=== PATIENT | female | born 1960 | race Caucasian/White ===

== ENCOUNTER → 2016-05-02 | Outpatient (CLI) | payer MEDICARE, MEDICAID ==
[~2016-05-02] MED LIST: ALLEGRA-D 24 H1 EACH PO; ALTACE2.5 MG PO; DOLOPHINE10 MG PO; JANUMET XR 50-1 EACH PO; KLOR-CON 1010 MEQ PO; LAMICTAL25 MG PO; LEXAPRO20 MG PO; LIPITOR20 M1 PO; NEURONTIN300 MG PO; SINGULAIR10 MG PO; VITAMIN B-1000 MCG/M SUB-Q; WELLBUTRIN XL150 M1 PO; WELLBUTRIN XL300 M1 PO
== END | disposition disaster alternative care site (69) ==
LOC: GRAD 13:51
DX: S83.92XA Sprain of unspecified site of left knee, initial encounter (principal); S43.401A Unspecified sprain of right shoulder joint, initial encounter

== ENCOUNTER 2016-05-27 02:02 | Emergency (ER) | payer MEDICARE, MEDICAID ==
--- NOTE | ~2016-05-27 | ER ---
PATIENT'S NAME: INOCENCIA HENDRIX [facility] AGE: 55 Y [address] ROOM: [place] [id number] LOCATION: [facility] ADMIT DATE: 05/27/2016 ER/Outpatient Report DISCHARGE DATE: 05/27/2016 FAMILY PHYSICIAN: Clauida Sloan MD ATTENDING PHYSICIAN: Quincy Mendieta CHIEF COMPLAINT: Left ankle pain. HISTORY OF PRESENT ILLNESS: The patient states that she was walking down her deck earlier in the evening when she slipped and rolled her ankle. She has tried Tylenol and elevation, and it was not helpful, ice also has not been helpful. PAST MEDICAL HISTORY: Documented on the record and reviewed by me. SOCIAL HISTORY: Documented on the record and reviewed by me. MEDICATIONS: Documented on the record and reviewed by me. ALLERGIES: DOCUMENTED ON THE RECORD AND REVIEWED BY ME. REVIEW OF SYSTEMS: All systems were reviewed and negative except as noted in the HPI. PHYSICAL EXAMINATION: VITAL SIGNS: Blood pressure 173/69, pulse 87, respiratory rate is 24, temperature 99.8, SpO2 is 99% on room air. Pain is currently 0/10. GENERAL: An age appropriate female, in no obvious pain or distress, sitting in the exam chair. NEUROLOGIC: Awake and alert. GCS is 15. No obvious abnormalities. Head is normal to inspection. CHEST: Even and unlabored respirations. HEART: The heart rate is normal. ABDOMEN: Soft and benign. BACK: Nontender. The lower extremities are normal to inspection. EXTREMITIES: Palpation of the left ankle and foot reveal diffuse tenderness, no focal tenderness, most prominent on the medial aspects. No focal bony tenderness. SKIN: Warm, dry, and intact. PATIENT'S NAME: INOCENCIA HENDRIX [facility] AGE: 55 Y [address] ROOM: [place] [address] LOCATION: [facility] ADMIT DATE: 05/27/2016 ER/Outpatient Report DISCHARGE DATE: 05/27/2016 FAMILY PHYSICIAN: Claudia Sloan MD ATTENDING PHYSICIAN: Quincy Mendieta IMPRESSION: Ankle pain. EMERGENCY DEPARTMENT COURSE: The patient was evaluated as above. X-rays were obtained. The patient does not have any fractures per my read. The patient was given hydrocodone for her pain and discharged in good condition. Walking boot for comfort. Rest, ice, elevation, and anti-inflammatories as needed. See primary care physician or orthopedic provider as preferred for followup if needed. Expect slow improvement over the next several days. MD GRISELDA JIMENEZ/leonor /[id number] d: 05/28/16 0007 t: 06/08/16 0826, OUTPATIENT REPORT
[2016-08-16] MEDS ORDERED: ALTACE2.5 MG PO (09:59)
[2016-08-16] MEDS ORDERED: LAMICTAL25 MG PO (10:00)
[2016-08-16] MEDS ORDERED: NEURONTIN300 MG PO (10:00)
[2016-08-16] MEDS ORDERED: LIPITOR20 M1 PO (10:01)
[2016-08-16] MEDS ORDERED: KLOR-CON 1010 MEQ PO (10:01)
[2016-08-16] MEDS ORDERED: SINGULAIR10 MG PO (10:01)
[2016-08-16] MEDS ORDERED: WELLBUTRIN XL150 M1 PO (10:02)
[2016-08-16] MEDS ORDERED: JANUMET XR 50-1 EACH PO (10:02)
[2016-08-16] MEDS ORDERED: WELLBUTRIN XL300 M1 PO (10:03)
[2016-08-16] MEDS ORDERED: LEXAPRO20 MG PO (10:03)
[2016-08-16] MEDS ORDERED: ALLEGRA-D 24 H1 EACH PO (10:04)
[2016-08-16] MEDS ORDERED: DOLOPHINE10 MG PO (10:04)
[2016-08-16] MEDS ORDERED: VITAMIN B-1000 MCG/M SUB-Q (10:30)
== END 2016-05-27 02:42 | disposition disaster alternative care site (69) ==
LOC: GACC 02:02
DX: M25.572 Pain in left ankle and joints of left foot (principal); Z88.1 Allergy status to other antibiotic agents; Z79.899 Other long term (current) drug therapy; W01.0XXA Fall on same level from slipping, tripping and stumbling without subsequent striking against object, initial encounter; Y93.01 Activity, walking, marching and hiking; Y99.8 Other external cause status